=== PATIENT | female | born 1980 | race Caucasian/White ===

== ENCOUNTER 2016-08-09 00:10 | Emergency (ER) | payer SELFPAY ==
[~2016-08-09] VITALS: Ht 175.3 cm; Wt 68.0 kg
[~2016-08-09 00:10] MED LIST: BETA.05%T TOP; PRED50 PO
[2016-08-09 00:13] VITALS: BP 106/65; PULSE 72; RESP 16; TEMP 97; O2SAT 100
--- NOTE | 2016-08-09 03:38 | PD ---
HPI Chief Complaint: Alcohol/Drug Intoxication Time Seen by Provider: 03:24 Travel History International Travel<30 days: No Contact w/Intl Traveler<30days: No Traveled to known affect area: No History of Present Illness HPI 35-year-old female was sent to the emergency room for medical clearance from [facility]. Patient has history of heroin IV drug abuse. Patient went to [facility] this evening for detox. Patient was found to be and was sent to the ED for evaluation and medical clearance. Patient states she is about 5 weeks . Patient denies abdominal pain. Patient denies any vaginal discharge or bleeding. Patient denies any dysuria or frequency. PFSH Past Medical History Medical History: Denies Significant Hx Diminished Hearing: No Tetanus Vaccination: Unknown Influenza Vaccination: Yes ?: Unknown LMP: "5 WEEKS AGO" Past Surgical History Surgical History: No Previous Surgery Social History Alcohol Use: No Tobacco Use: Yes (1ppd) Substance Use: Yes (IV HEROIN) Allergies-Medications (Allergen,Severity, Reaction): Coded Allergies: No Known Allergies (Unverified , 10/12/15) Reported Meds & Prescriptions Reported Meds & Active Scripts Active No Active Prescriptions or Reported Medications Review of Systems General / Constitutional: No: Fever Eyes: No: Visual changes HENT: No: Headaches Cardiovascular: No: Chest Pain or Discomfort Respiratory: No: Shortness of Breath Gastrointestinal: No: Abdominal Pain Genitourinary: No: Dysuria Musculoskeletal: No: Pain Skin: No Rash Neurologic: No: Weakness Psychiatric: No: Depression Endocrine: No: Polydipsia Hematologic/Lymphatic: No: Easy Bruising Physical Exam Narrative GENERAL: Well-nourished, well-developed patient. SKIN: Focused skin assessment warm/dry. HEAD: Normocephalic. EYES: No scleral icterus. No injection or drainage. NECK: Supple, trachea midline. No JVD or lymphadenopathy. CARDIOVASCULAR: Regular rate and rhythm without murmurs, gallops, or rubs. RESPIRATORY: Breath sounds equal bilaterally. No accessory muscle use. GASTROINTESTINAL: Abdomen soft, non-tender, nondistended. MUSCULOSKELETAL: No cyanosis, or edema. BACK: Nontender without obvious deformity. No CVA tenderness. Data Data Last Documented VS Vital Signs Date Time Temp Pulse Resp B/P Pulse Ox O2 Delivery O2 Flow Rate FiO2 08/09/16 00:13 97.0 72 16 106/65 100 Room Air [facility] Medical Decision Making Medical Screen Exam Complete: Yes Emergency Medical Condition: Yes Differential Diagnosis Differential diagnosis including , IV drug abuse. Narrative Course 35-year-old female, 5 week by date, is here for medical clearance for [facility] or drug detox program. Patient's asymptomatic. Patient does not have any problem with this . Diagnosis Primary Impression: Qualified Code: Z3A.01 - Less than 8 weeks gestation of Additional Impression: Substance abuse Patient Instructions: General Instructions Additional Instructions: Advised [id number] vitamins. Follow-up with local OB clinic. Patient is medically cleared to go to [facility]. Med/Other Pt SpecificInfo: No Meds Exist/No RX given Scripts No Active Prescriptions or Reported Meds Disposition: 01 DISCHARGE HOME Condition: Alexandre Saavedra MD August 09, 2016 03:38
== END 2016-08-09 04:09 | disposition home or self-care (01) ==
LOC: NEPC 00:10
DX: O99.321 Drug use complicating pregnancy, first trimester (principal); F11.10 Opioid abuse, uncomplicated; O09.511 Supervision of elderly primigravida, first trimester; Z3A.01 Less than 8 weeks gestation of pregnancy
CPT/HCPCS: 99282